=== PATIENT | male | born 1955 | race Caucasian/White ===

== ENCOUNTER 2019-08-26 08:45 | Emergency (ER) | payer BC, OTHER ==
[2019-08-26] MEDS ORDERED: Albuterol/Ipratropium 3.0-0.5 MG/3 ML Neb Soln NEB ONE (08:49)
--- NOTE | 2019-08-26 08:54 | EDM.PDOC ---
ED HPI GENERAL MEDICAL PROBLEM - General Chief Complaint: Respiratory Problem Stated Complaint: TROUBLE BREATHING Time Seen by Provider: 08/26/19 08:53 Source of Information: Reports: Patient - History of Present Illness INITIAL COMMENTS - FREE TEXT/NARRATIVE: HISTORY AND PHYSICAL: History of present illness: [Patient presents by private vehicle He has significant smoking history since he was 15 he admits to a half to a full pack of cigarettes daily, he presents with shortness of breath no chest pain or diaphoresis however on deep inspiration he does have a left-sided back pain which coincides with or is reproduced by palpation of his left paraspinous muscles in the thoracic region. Patient did receive a DuoNeb and Solu-Medrol which relieved the shortness of breath he did have audible wheezing on arrival and now has returned to baseline initial EKG did have some artifact as he was quite tight we did later repeat an EKG as he is much more comfortable this has returned without acute change. Symptoms of shortness of breath and the pain on inspiration began yesterday a full 24 hours of symptoms prior to presentation troponin remains negative chest x-ray is clear other than scarring and COPD changes no acute process identified by radiology At current he is at baseline and asymptomatic no fever nausea vomiting chills sweats no chest pain shortness of breath headache dizziness palpitation no bowel or urine symptoms no bradycardia pain radiation to arm neck or jaw at any time, ] Review of systems: As per history of present illness and below otherwise all systems reviewed and negative. Past medical history: As per history of present illness and as reviewed below otherwise noncontributory. Surgical history: As per history of present illness and as reviewed below otherwise noncontributory. Social history: No reported history of drug or alcohol abuse. Family history: As per history of present illness and as reviewed below otherwise noncontributory. Physical exam: HEENT: Atraumatic, normocephalic, pupils reactive, negative for conjunctival pallor or scleral icterus, mucous membranes moist, throat clear, neck supple, nontender, trachea midline. Lungs: Clear to auscultation, breath sounds equal bilaterally, chest nontender. DuoNeb and Solu-Medrol Heart: S1S2, regular, negative for clicks, rubs, or JVD. Abdomen: Soft, nondistended, nontender. Negative for masses or hepatosplenomegaly. Negative for costovertebral tenderness. Pelvis: Stable nontender. Genitourinary: Deferred. Rectal: Deferred. Extremities: Atraumatic, negative for cords or calf pain. Neurovascular unremarkable. Neuro: Awake, alert, oriented. Cranial nerves II through XII unremarkable. Cerebellum unremarkable. Motor and sensory unremarkable throughout. Exam nonfocal. Diagnostics: [cbc cmp ua trop ekg chest 1v ] Therapeutics: [duoneb Solu-Medrol prednisone Azithromycin Albuterol HFA Offered observation admission and refused Extended offer to return if symptoms persist or worsen or if new concerning symptoms develop otherwise follow-up with primary care in 2 weeks ] Impression: [sob-old Wheeze resolved COPD exacerbation ] Definitive disposition and diagnosis as appropriate pending reevaluation and review of above. L upper back Pain Score (Numeric/FACES): 6 - Related Data Allergies Allergy/AdvReac Type Severity Reaction Status Date / Time No Known Allergies Allergy Verified 08/26/19 08:54 Home Meds: Home Meds Multivitamin [Multivitamins] 1 tab PO DAILY 08/26/19 [History] ED ROS GENERAL - Review of Systems Review Of Systems: See Below ED EXAM, GENERAL - Physical Exam Exam: See Below Course - Vital Signs Last Recorded V/S: Last Vital Signs Temp 97.0 F 08/26/19 08:52 Pulse 70 08/26/19 10:22 Resp 18 08/26/19 10:22 BP 136/82 08/26/19 10:22 Pulse Ox 94 L 08/26/19 10:22 - Orders/Labs/Meds Orders: Active Orders 24 hr Category Date Time Status EKG 12 Lead [EKG Documentation Completion] [RC] STAT Care 08/26/19 08:49 Active EKG 12 Lead [EKG Documentation Completion] [RC] STAT Care 08/26/19 10:17 Active RT Aerosol Therapy [RC] ASDIRECTED Care 08/26/19 08:49 Active Labs: Laboratory Tests 08/26/19 08/26/19 Range/Units 08:52 08:52 WBC 6.21 (4.0-11.0) K/uL RBC 5.89 (4.50-5.90) M/uL Hgb 18.2 H (13.0-17.0) g/dL Hct 53.0 H (38.0-50.0) % MCV 90.0 (80.0-98.0) fL MCH 30.9 (27.0-32.0) pg MCHC 34.3 (31.0-37.0) g/dL RDW Std Deviation 44.7 (28.0-62.0) fl RDW Coeff of Andriy 14 (11.0-15.0) % Plt Count 222 (150-400) K/uL MPV 10.70 (7.40-12.00) fL Neut % (Auto) 60.7 (48.0-80.0) % Lymph % (Auto) 27.1 (16.0-40.0) % [place] % (Auto) 10.1 (0.0-15.0) % Eos % (Auto) 1.8 (0.0-7.0) % Baso % (Auto) 0.3 (0.0-1.5) % Neut # (Auto) 3.8 (1.4-5.7) K/uL Lymph # (Auto) 1.7 (0.6-2.4) K/uL [place] # (Auto) 0.6 (0.0-0.8) K/uL Eos # (Auto) 0.1 (0.0-0.7) K/uL Baso # (Auto) 0.0 (0.0-0.1) K/uL Nucleated RBC % 0.0 /100WBC Nucleated RBCs # 0 K/uL Sodium 141 (136-148) mmol/L Potassium 4.0 (3.5-5.1) mmol/L Chloride 105 (98-107) mmol/L Carbon Dioxide 28.4 (21.0-32.0) mmol/L BUN 12 (7.0-18.0) mg/dL Creatinine 1.2 (0.8-1.3) mg/dL Est Cr Clr Drug Dosing 67.11 mL/min Estimated GFR (MDRD) > 60.0 ml/min Glucose 121 H (74-106) mg/dL Calcium 9.3 (8.5-10.1) mg/dL Total Bilirubin 0.8 (0.2-1.0) mg/dL AST 14 L (15-37) IU/L ALT 23 (14-63) IU/L Alkaline Phosphatase 87 (46-116) U/L Troponin I < 0.050 (0.000-0.056) ng/mL Total Protein 7.3 (6.4-8.2) g/dL Albumin 3.8 (3.4-5.0) g/dL Globulin 3.5 (2.6-4.0) g/dL Albumin/Globulin Ratio 1.1 (0.9-1.6) Meds: Medications Discontinued Medications Generic Name Dose Route Start Last Admin Trade Name Freroyer PRN Reason Stop Dose Admin Albuterol/Ipratropium 3 ml 08/26/19 08:49 08/26/19 08:53 Duoneb 3.0-0.5 Mg/3 Ml NEB 08/26/19 08:50 3 ml ONETIME ONE Administration Methylprednisolone Sodium Succinate 125 mg 08/26/19 09:26 08/26/19 09:35 Solu-Medrol IVPUSH 08/26/19 09:27 125 mg ONETIME ONE Administration Departure - Departure Time of Disposition: 11:08 Disposition: Home, Self-Care 01 Condition: Good Clinical Impression: COPD exacerbation - Discharge Information Forms: ED Department Discharge Additional Instructions: medication as prescribed Return if symptoms persist or worsen or if new concerning symptoms develop Follow-up with [facility] in 2 weeks sooner as needed [facility] [address] [place] [address] The following information is given to patients seen in the emergency department who are being discharged to home. This information is to outline your options for follow-up care. We provide all patients seen in our emergency department with a follow-up referral. The need for follow-up, as well as the timing and circumstances, are variable depending upon the specifics of your emergency department visit. If you don't have a primary care physician on staff, we will provide you with a referral. We always advise you to contact your personal physician following an emergency department visit to inform them of the circumstance of the visit and for follow-up with them and/or the need for any referrals to a consulting specialist. The emergency department will also refer you to a specialist when appropriate. This referral assures that you have the opportunity for follow-up care with a specialist. All of these measure are taken in an effort to provide you with optimal care, which includes your follow-up. Under all circumstances we always encourage you to contact your private physician who remains a resource for coordinating your care. When calling for follow-up care, please make the office aware that this follow-up is from your recent emergency room visit. If for any reason you are refused follow-up, please contact the [facility] emergency department at and asked to speak to the emergency department charge nurse. Sepsis Event Note - Focused Exam Vital Signs: Vital Signs Temp Pulse Resp BP Pulse Ox 08/26/19 10:22 70 18 136/82 94 L 08/26/19 08:52 97.0 F 76 20 152/93 H 97 Date Exam was Performed: 08/26/19 Time Exam was Performed: 11:04 - My Orders Last 24 Hours: My Active Orders 08/26/19 08:49 EKG 12 Lead [EKG Documentation Completion] [RC] STAT RT Aerosol Therapy [RC] ASDIRECTED 08/26/19 10:17 EKG 12 Lead [EKG Documentation Completion] [RC] STAT - Assessment/Plan Last 24 Hours: My Active Orders 08/26/19 08:49 EKG 12 Lead [EKG Documentation Completion] [RC] STAT RT Aerosol Therapy [RC] ASDIRECTED 08/26/19 10:17 EKG 12 Lead [EKG Documentation Completion] [RC] STAT
[2019-08-26] MEDS ORDERED: methylPREDNISolone Sodium Succinate 125 MG/2 ML SDV IVPUSH ONE (09:26)
[2019-08-26 09:30] LABS: BLOOD UREA NITROGEN,BUN 12 mg/dL (7.0-18.0); CARBON DIOXIDE,CO2 28.4 mmol/L (21.0-32.0); CHLORIDE,CL 105 mmol/L (98-107); GLUCOSE RANDOM 121 mg/dL (74-106); SODIUM,NA 141 mmol/L (136-148)
--- NOTE | 2019-08-26 10:07 | CR ---
Chest: Portable view of the chest was obtained. Comparison: No prior chest imaging is available. Heart size is normal. Tortuous thoracic aorta is seen. Minimal atelectasis or scarring is noted within the right lateral costophrenic angle. Lungs otherwise are clear with no acute parenchymal change. Bony structures are grossly intact. Impression: 1. Findings as noted above believed to be incidental. 2. Nothing acute is appreciated on portable chest x-ray. Diagnostic code #2 This report was dictated in [place] Standard Time
== END 2019-08-26 11:25 | disposition home or self-care (01) ==
LOC: MW.ED 08:45
DX: J44.1 Chronic obstructive pulmonary disease with (acute) exacerbation (principal); M54.6 Pain in thoracic spine; F17.210 Nicotine dependence, cigarettes, uncomplicated
CPT/HCPCS: 36415; 71045; 80053; 84484; 85025; 87804; 93005; 94640; 96374; 99285; J2930; 99283; J7620-GY